=== PATIENT | female | born 2000 | race Caucasian/White ===

== ENCOUNTER → 2018-06-30 11:33 | Outpatient (CLI) | payer OTHER, SELFPAY | PROVIDERS: Family Provider Family Medicine; PCP Family Medicine; Visit Provider Physician Assistant | DX: J02.0 Streptococcal pharyngitis (principal) | CPT/HCPCS: 87070 ==

== ENCOUNTER 2018-09-09 11:56 | Emergency (ER) | payer OTHER, SELFPAY ==
[2018-09-09 12:00] VITALS: BP 104/72; PULSE 97; RESP 14; TEMP 36.7; O2SAT 97
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
[2018-09-09] MEDS: KETOROLAC 60 MG/2 ML VIAL IM (12:40)
[2018-09-09] MEDS: LIDOCAINE PATCH 1 EACH ADH..PATCH 2 EACH TOP (12:43)
[2018-09-09 13:25] VITALS: BP 116/69; PULSE 69; RESP 18; O2SAT 100
== END 2018-09-09 13:37 | disposition home or self-care (01) ==
PROVIDERS: Emergency Provider Internal Medicine; Family Provider Family Medicine; PCP Family Medicine
DX: M94.0 Chondrocostal junction syndrome [Tietze] (principal)
CPT/HCPCS: 71111; 99282; 99283; J1885

== ENCOUNTER 2018-09-10 10:25 | Emergency (ER) | payer OTHER, SELFPAY ==
[2018-09-10 10:37] VITALS: BP 111/78; PULSE 83; RESP 16; TEMP 37; O2SAT 100; BMI 17.6
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
--- NOTE | 2018-09-10 11:20 | PC.NURSE ---
Applied the clothe on bilateral lateral affected rib site. Pt states if the tape comes off easily, will buy KT tape from the store and will use this. Discussed how to applied on the site with pt.
[2018-09-10] MEDS: HYDROMORPHONE 2 MG INJ 0.5 MG IM (13:01)
[2018-09-10 13:50] VITALS: BP 107/64; PULSE 60; RESP 18; O2SAT 100
== END 2018-09-10 13:51 | disposition home or self-care (01) ==
PROVIDERS: Emergency Provider Emergency Medicine; PCP Family Medicine
DX: S29.011A Strain of muscle and tendon of front wall of thorax, initial encounter (principal)
CPT/HCPCS: 96372; 99282; 99283; J1170

== ENCOUNTER → 2018-09-29 16:21 | Outpatient (CLI) | payer OTHER, SELFPAY ==
[2018-09-29 22:26] LABS: Urine N gonorrhoeae NOT DETECTED
[2018-09-29 22:54] LABS: Urine Chlamydia NOT DETECTED
== END ==
PROVIDERS: Visit Provider Registered Nurse
DX: Z20.2 Contact with and (suspected) exposure to infections with a predominantly sexual mode of transmission (principal)
CPT/HCPCS: 87491; 87591

== ENCOUNTER → 2019-01-27 14:04 | Outpatient (CLI) | payer OTHER, SELFPAY | PROVIDERS: Visit Provider Physician Assistant | DX: J02.9 Acute pharyngitis, unspecified (principal) | CPT/HCPCS: 87070; 87077; 87147 ==

== ENCOUNTER → 2020-02-05 11:12 | Outpatient (CLI) | payer OTHER, SELFPAY | PROVIDERS: Visit Provider Registered Nurse Diabetes Educator | DX: N89.8 Other specified noninflammatory disorders of vagina (principal) | CPT/HCPCS: 87210 ==

== ENCOUNTER 2021-04-05 18:18 | Emergency (ER) | payer OTHER, SELFPAY ==
[2021-04-05 18:53] VITALS: BP 128/66; PULSE 68; RESP 18; TEMP 36; O2SAT 99
[2021-04-05] MEDS: CYCLOBENZAPRINE 10 MG TABLET PO (21:00)
[2021-04-05] MEDS: IBUPROFEN 400 MG TABLET 800 MG PO (21:00)
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
== END 2021-04-05 22:10 | disposition home or self-care (01) ==
PROVIDERS: Emergency Provider Emergency Medicine; PCP Registered Nurse Diabetes Educator
DX: S16.1XXA Strain of muscle, fascia and tendon at neck level, initial encounter (principal); V89.2XXA Person injured in unspecified motor-vehicle accident, traffic, initial encounter; Z30.09 Encounter for other general counseling and advice on contraception; R11.0 Nausea
CPT/HCPCS: 99283

== ENCOUNTER → 2022-09-15 10:16 | Outpatient (CLI) | payer BC, OTHER, SELFPAY | PROVIDERS: PCP Registered Nurse Diabetes Educator; Visit Provider Registered Nurse Diabetes Educator | DX: N89.8 Other specified noninflammatory disorders of vagina (principal) | CPT/HCPCS: 87210 ==

== ENCOUNTER → 2022-09-15 10:22 | Outpatient (CLI) | payer BC, OTHER, SELFPAY ==
[2022-09-15 13:00] LABS: Urine N gonorrhoeae NOT DETECTED
[2022-09-15 13:16] LABS: Urine Chlamydia NOT DETECTED
== END ==
PROVIDERS: PCP Registered Nurse Diabetes Educator; Referring Provider Registered Nurse Diabetes Educator; Visit Provider Registered Nurse Diabetes Educator
DX: N89.8 Other specified noninflammatory disorders of vagina (principal)
CPT/HCPCS: 87210; 87491; 87591